=== PATIENT | male | born 1955 | race Caucasian/White ===

== ENCOUNTER → 2023-11-02 | Day surgery (SDC) | payer MEDICARE, BC ==
[~2023-11-02] MED LIST: Acetylcysteine 800 MG/4 ML VIAL ONE; Atropine Sulfate 1 mg/1 ml Vial ONE; Heparin 10,000 UNITS/ 10 ML VIAL ONE; Iopamidol 300 61% 100 ML VIAL FS ONE; Lidocaine 1% (PF) 30 ML VIAL ONE; Midazolam HCl 2 mg/2 ml Vial ONE; Nitroglycerin 50 MG/250 ML BOT 0 ML ONE; PHENYLEPHRINE-NS 100 MCG/ML 10 ML SYRINGE ONE; Phenylephrine 40 MG/NS 250 ML 0 ML ONE; fentaNYL 50 mcg/mL 1 mL Vial ONE
[2023-11-02 06:57] LABS: PTT 24.8 sec (22.0-33.0); Prothrombin Time 10.6 sec (9.5-12.1)
[2023-11-02 06:59] LABS: Anion Gap 18 mmol/L (10-20); BUN (Urea Nitrogen) 13 mg/dL (8.4-25.7); Calc. Creatinine Clearance 0 mL/min (70-130); Calcium 9.4 mg/dL (7.8-10.44); Carbon Dioxide 21 mmol/L (23-31); Chloride 103 mmol/L (98-107); Estimated GFR 65; Glucose 396 mg/dL (80-115); Potassium 4.4 mmol/L (3.5-5.1); Sodium 138 mmol/L (136-145)
[2023-11-02 07:09] VITALS: BP 165/92; TEMP 97.8
[2023-11-02 07:12] LABS: #Eosinphils 0.1 10x3/uL (0.0-0.5); #Monocytes 0.6 10x3/uL (0.0-1.1); #Neutrophils 4.4 10x3/uL (1.5-8.4); %Basophils 0.6 % (0.0-2.0); %Eosinophils 1.9 % (0.0-6.0); %Lymphocytes 16.2 % (18.0-47.0); %Monocytes 9.5 % (0.0-10.0); %Neutrophils 70.7 % (40.0-75.0); Hematocrit 29.3 % (38.8-50.0); Hemoglobin 10.1 g/dL (13.5-17.5); Mean Corpuscular HGB CONC 34.5 g/dL (32.0-36.0); Mean Corpuscular Hemoglobin 36.6 pg (27.0-33.0); Mean Corpuscular Volume 106.2 fl (81.2-95.1); Mean Platelet Volume 12.2 fl (7.4-10.4); Platelet Count 322 10x3/uL (150-450); RBC Distribution Width 23.2 % (11.5-14.5); Red Blood Cell (RBC) Count 2.76 10x6/uL (4.32-5.72); White Blood Cell (WBC) Count 6.2 10x3/uL (3.5-10.5)
== END ==
LOC: CSHCCL 06:23
PROVIDERS: ATTEND Specialist
PROC: B300ZZZ Plain Radiography of Thoracic Aorta (ICD-10-PCS; principal; 2023-11-02)
PROC: B204YZZ Plain Radiography of Right Heart using Other Contrast (ICD-10-PCS; 2023-11-02)
DX: I65.02 Occlusion and stenosis of left vertebral artery (principal)
CPT/HCPCS: 36223; 36225; 36226; 80048; 85025; 85610; 85730; 93005; C1760; C1769 ×2; C1894 ×2; J3010; 36222; 93010; 99152; 99153; J0461; J1644; J2001; J2250; Q9967